=== PATIENT | female | born 1980 | race Caucasian/White ===

== ENCOUNTER 2019-03-18 03:29 | Emergency (ER) | payer BC ==
[~2019-03-18] VITALS: Ht 175.3 cm; Wt 96.6 kg
[2019-03-18 03:36] VITALS: Ht 175.3 cm; Wt 96.6 kg
[2019-03-18 04:50] VITALS: BP 116/71
== END 2019-03-18 04:50 | disposition home or self-care (01) ==
LOC: ED 03:29
DX: J40 Bronchitis, not specified as acute or chronic (principal); J06.9 Acute upper respiratory infection, unspecified
CPT/HCPCS: 82962